=== PATIENT | female | born 1995 | race Caucasian/White ===

== ENCOUNTER 2018-06-12 19:46 | Emergency (ER) | payer MEDICAID ==
[2018-06-12 20:34] LABS: Basophils % (Auto) 0.4 % (0.0-1.8); Hematocrit 31.3 % (30.3-42.9); Lymphocytes # (Auto) 1.1 K/mm3 (1.2-5.4); Lymphocytes % (Auto) 18.5 % (13.4-35.0); Mean Corpuscular HGB Conc 35 % (30-34); Mean Corpuscular Hemoglobin 30 pg (28-32); Mean Corpuscular Volume 85 fl (79-97); Monocytes # (Auto) 0.6 K/mm3 (0.0-0.8); Monocytes % (Auto) 9.5 % (0.0-7.3); Platelet Count 133 K/mm3 (140-440); Red Blood Count 3.69 M/mm3 (3.65-5.03); Red Cell Distribution Width 15.9 % (13.2-15.2)
[2018-06-12 20:44] LABS: BUN/Creatinine Ratio 18; Blood Urea Nitrogen 11 mg/dL (7-17); Calcium 8.8 mg/dL (8.4-10.2); Hemolysis Index 0
[2018-06-12 22:05] LABS: Amorphous Crystals,Urine Few; Bilirubin,Urine NEG (Negative); Blood,Urine MOD (Negative); Color,Urine Yellow (Yellow); Mucus,Urine FEW /HPF; Protein,Urine <15 mg/dL mg/dL (Negative); Urobilinogen,Urine < 2.0 mg/dL (<2.0)
[2018-06-12 22:15] LABS: Amphetamine Screen,Urine PRESUMPTIVE NEGATIVE; Benzodiazepines Screen,Urine PRESUMPTIVE NEGATIVE; Cannabinoid Screen,Urine PRESUMPTIVE NEGATIVE; Cocaine Screen,Urine PRESUMPTIVE NEGATIVE; Methadone Screen,Urine PRESUMPTIVE NEGATIVE; Opiate Screen,Urine PRESUMPTIVE NEGATIVE
--- NOTE | 2018-06-13 03:14 | Emergency Department Report ---
HPI - General Chief Complaint: Psych Time Seen by Provider: 06/13/18 00:53 - HPI HPI: The patient's 23-year-old female with a significant history of long-standing depression, bipolar disorder, a depression requiring inpatient psychiatric therapy, who presents for evaluation of recurrence of depression. The patient presents for evaluation of mental health after recent child delivery. The patient admits to severe anxiety/worrying, insomnia, sadness, and recurrent tearfulness. The patient is scheduled to receive from NICU. The patient's should sister shares that the patient has exhibited severe unwarranted paranoia as stated earlier this week that she wanted to take her older child and leave the sister's home where she is living out of concern for her safety. The patient cannot verbalize why she felt unsafe in the sister's home. Additionally the patient cannot verbalize why she is anxious or worried, or tearful. The patient denies fever, headache, unexplained weight loss or weight gain, heat or cold intolerance, skin, hair, or nail changes, neuro deficits, homicidal ideations, or auditory or visual hallucinations. ED Past Medical Hx - Past Medical History Previous Medical History?: Yes Additional medical history: Bi polar - Surgical History Past Surgical History?: No - Social History Smoking Status: Never Smoker Substance Use Type: None ED Review of Systems ROS: Stated complaint: MH Other details as noted in HPI Constitutional: denies: fever ENT: denies: throat or neck pain Respiratory: denies: cough, shortness of breath Cardiovascular: denies: chest pain Endocrine: denies unexplained weight loss or gain Gastrointestinal: denies: abdominal pain, nausea Genitourinary: denies: dysuria Musculoskeletal: denies: leg swelling Skin: denies: rash Neurological: denies: headache Hematological/Lymphatic: denies: easy bleeding or easy bruising Psych: reports sadness, worrying Physical Exam - Physical Exam Vital Signs: Vital Signs 06/12/18 06/13/18 19:54 00:30 Temperature 99.7 F H 98.9 F Pulse Rate 86 80 Respiratory 16 18 Rate Blood Pressure 100/60 Blood Pressure 110/55 [Left] O2 Sat by Pulse 96 100 Oximetry Physical Exam: General: well-nourished, well-developed, no acute distress Head: Normocephalic, atraumatic Eyes: normal sclera ENT: Mucous membranes are pink and moist Neck: trachea midline, neck supple, No neck stiffness, no cervical adenopathy Respiratory: Breath sounds equal bilaterally, no wheezing, rales, or rhonchi Cardio: S1 and S2 present, no murmurs, rubs, gallops, capillary refill is brisk Abdomen: Normoactive bowel sounds, soft abdomen, no rigidity, no guarding or rebound tenderness Chest WALL/Back: No tenderness to palpation of the chest wall, no CVA tenderness with percussion Musc: No pitting edema Skin: No rash Neuro: no facial drooping, normal speech Psych: Flat affect, patient withdrawn, poor insight, delusional ED Course Vital Signs 06/12/18 06/13/18 19:54 00:30 Temperature 99.7 F H 98.9 F Pulse Rate 86 80 Respiratory 16 18 Rate Blood Pressure 100/60 Blood Pressure 110/55 [Left] O2 Sat by Pulse 96 100 Oximetry ED Medical Decision Making - Lab Data Result diagrams: 06/12/18 20:18 06/12/18 20:18 - Medical Decision Making The patient was seen and examined by myself. The patient is placed on a court recording monitor and continuous pulse ox. On initial evaluation, the patient was found to be in no distress. Labs are obtained. Lab results revealed elevated urinalysis WBC with positive leukocyte esterase, concerning for acute urinary tract infection, and otherwise labs are grossly unremarkable. The patient is given a tablet of macrobid for her urinary tract infection. The patient is medically clear. Mental health is consulted. Mental health evaluates the patient and agrees that the patient is at risk of harm to her child and self. A 1013 is completed. The patient will be admitted to a psychiatric facility once bed placement is obtained. Critical care attestation.: If time is entered above; I have spent that time in minutes in the direct care of this critically ill patient, excluding procedure time. ED Disposition Clinical Impression: Acute lower urinary tract infection, depression, Mood disorder Disposition: [id number]/TX-[id number] PSY HOSP/PSY UNIT Is pt being admited?: No Does the pt Need Aspirin: No Condition: Fair Referrals: PRIMARY CARE, [Primary Care Provider] - 3-5 Days Time of Disposition: 05:27
[2018-06-13] MEDS ORDERED: ALUM-MAG HYDROX-SIMETH 200-200-20MG/5ML PO PRN (05:20)
[2018-06-13] MEDS ORDERED: TYLENOL PO PRN (05:20)
[2018-06-13] MEDS ORDERED: MILK OF MAGNESIA PO PRN (05:20)
[2018-06-13] MEDS: MACROBID PO SCH ×2 (06:07→09:33)
[2018-06-13] MEDS ORDERED: ATIVAN ONE (09:30)
[2018-06-13] MEDS ORDERED: ATIVAN PO ONE (09:51)
[2018-06-13 10:21] VITALS: BP 123/81
--- NOTE | 2018-06-13 13:44 | Consultation ---
History of Present Illness - Reason for Consult Consult date: 06/13/18 Reason for consult: Mental Health Evaluation Requesting physician: MAL GUTIERRES - Chief Complaint Chief complaint: "I am okay" - History of Present Psychiatric Illness 23-year-old female presenting the ER for a bizarre mood. Today the patent is calm, but blunted during the assessment. The patient's story on how she got to the ER was not logical. She was asked several questions and all her answers were "no." During the interview the patient stared at the wall for several minutes. She denies having a mental health hx. Per the record, the patient have been hospitalized for stabilization (mental health). She stated that her only issue is that she experienced a "Panic Attack." Also, she acknowledged not sleeping for the past couple days because she felt like sleep was not needed. She denies SI/HI's. This patient is a poor historian at this time. Medications and Allergies Allergies Allergy/AdvReac Type Severity Reaction Status Date / Time No Known Allergies Allergy Unverified 06/12/18 20:03 Active Meds: Active Medications Acetaminophen (Tylenol) 650 mg PO Q4HR PRN PRN Reason: Pain MILD(1-3)/Fever >100.5/CORONEL Al Hydrox/Mg Hydrox/Simethicone (Alum-Mag Hydrox-Simeth [id number]/5ml) 30 ml PO Q4HR PRN PRN Reason: Indigestion Magnesium Hydroxide (Milk Of Magnesia) 30 ml PO Q12HR PRN PRN Reason: Constipation Nitrofurantoin Macrocrystals (Macrobid) 100 mg PO BID MAINE Stop: 06/18/18 05:29 Last Admin: 06/13/18 09:33 Dose: 100 mg Past psychiatric history - Past Medical History Past Medical History: other (3 Pregnancies) Past Surgical History: No surgical history - past Psychiatric treatment and history psychiatric treatment history: Inpatient at [facility] in the past. Denies a fam psy hx. - Social History Social history: lives with family Mental Status Exam - Vital signs Last Vital Signs Temp 97.9 F 06/13/18 10:20 Pulse 98 H 06/13/18 10:20 Resp 18 06/13/18 12:00 BP 123/81 06/13/18 10:20 Pulse Ox 98 06/13/18 12:00 - Exam Narrative exam: MSE: Appearance: calm Behavior: blank stare intermittently Speech: regular rate and tone Mood: blunted Affect: congruent to mood Thought Process: disorganized Thought Content: denies SI/HI's and AVH's Motor Activity: ambulatory Cognition: A/O x 3 Insight: poor Judgment: poor Results Result Diagrams: 06/12/18 20:18 06/12/18 20:18 Abnormal lab results 06/12/18 06/12/18 06/12/18 Range/Units 20:18 20:18 20:18 MCHC (30-34) % RDW (13.2-15.2) % Plt Count (140-440) K/mm3 [place] % (Auto) (0.0-7.3) % Lymph # (1.2-5.4) K/mm3 Seg Neutrophils % (40.0-70.0) % Creatinine 0.6 L (0.7-1.2) mg/dL Urine WBC (Auto) (0.0-6.0) /HPF Salicylates < 0.3 L (2.8-20.0) mg/dL Acetaminophen < 5.0 L (10.0-30.0) ug/mL 06/12/18 06/12/18 Range/Units 20:18 21:26 MCHC 35 H (30-34) % RDW 15.9 H (13.2-15.2) % Plt Count 133 L (140-440) K/mm3 [place] % (Auto) 9.5 H (0.0-7.3) % Lymph # 1.1 L (1.2-5.4) K/mm3 Seg Neutrophils % 71.6 H (40.0-70.0) % Creatinine (0.7-1.2) mg/dL Urine WBC (Auto) 13.0 H (0.0-6.0) /HPF Salicylates (2.8-20.0) mg/dL Acetaminophen (10.0-30.0) ug/mL All other labs normal. Assessment and Plan Assessment and plan: Impression: Unspecified Psychosis. Today the patent is calm, but blunted during the assessment. UDS is negative. DDx: Bipolar DO with psychosis Recommendation/Plan: Continue 1013 with placement to [facility] today.
--- NOTE | 2018-06-13 14:40 | Emergency Department Report ---
Blank Doc - Documentation Documentation: Asked to see patient by nurse for be difficult and uncooperative. Patient is awake and oriented, she is coherent, but not cooperative, and has made an attempt to leave the facility. She is not violent otherwise. She needs seclusion, but does not restraints, and we will observe and reassess on a regular basis. Patient is waiting placement facility, but otherwise is stable. No other distress noted.
== END 2018-06-13 14:48 ==
LOC: ED 19:46
DX: F53 Mental and behavioral disorders associated with the puerperium, not elsewhere classified (principal); N39.0 Urinary tract infection, site not specified; F39 Unspecified mood [affective] disorder
CPT/HCPCS: 36415; 80048; 80307; 81001; 85025; 99285; G0480; 80320